=== PATIENT | male | born 1945 | race Caucasian/White ===

== ENCOUNTER → 2017-06-13 | Outpatient (CLI) | payer MEDICARE ==
[2017-06-13 11:30] LABS: HEMOGLOBIN 14.9 g/dL (14.1-18.0); LYMPH % 19.4 % (10-50)
[2017-06-13 14:53] LABS: BUN 16 mg/dL (7-18)
[2017-06-13 15:08] LABS: GFR (ESTIMATED) 83 ML/MIN (>60)
== END ==
LOC: LAB 11:12
PROVIDERS: Emergency Medicine
DX: E11.9 Type 2 diabetes mellitus without complications (principal); I25.10 Atherosclerotic heart disease of native coronary artery without angina pectoris

== ENCOUNTER → 2017-08-28 | Outpatient (CLI) | payer MEDICARE ==
[2017-08-28 08:25] LABS: HEMOGLOBIN 15.6 g/dL (14.1-18.0); LYMPH # 1.3 K/mm3 (0.7-4.5); LYMPH % 19.8 % (10-50)
[2017-08-28 09:01] LABS: URINE BILIRUBIN - DIPSTICK NEGATIVE (NEG); URINE BLOOD NEGATIVE (NEG)
[2017-08-28 09:29] LABS: URINE SQUAMOUS CELLS OCC #/hpf (OCC)
[2017-08-28 09:30] LABS: BUN 16 mg/dL (7-18)
[2017-08-28 09:31] LABS: GFR (ESTIMATED) 83 ML/MIN (>60)
== END ==
LOC: LAB 07:46
PROVIDERS: Internal Medicine Nephrology
DX: R80.9 Proteinuria, unspecified (principal); E55.9 Vitamin D deficiency, unspecified

== ENCOUNTER → 2017-09-26 | Outpatient (CLI) | payer MEDICARE ==
[2017-09-26 19:13] LABS: AMPHETAMINES/METAMPHETAMINES NEGATIVE ng/mL (<1000)
== END ==
LOC: LAB 17:31
PROVIDERS: Emergency Medicine
DX: Z79.899 Other long term (current) drug therapy (principal)